=== PATIENT | female | born 1955 | race Caucasian/White ===

== ENCOUNTER 2016-09-15 12:28 | Day surgery (SDC) | payer OTHER ==
[2016-09-15 12:48] VITALS: TEMP 97.1; O2SAT 98
[2016-09-15] MEDS: TRIAMCINOLONE ACETONIDE 40 MG/ML SUS ONE ×2 (13:45→13:48)
[2016-09-15 14:00] VITALS: BP 121/56; PULSE 79; RESP 18
== END 2016-09-15 14:19 | disposition home or self-care (01) ==
LOC: SURG 12:28
PROVIDERS: ATTEND Nurse Anesthetist, Certified Registered
DX: M54.5 Low back pain (principal)
CPT/HCPCS: J3300

== ENCOUNTER 2016-10-30 12:08 | Emergency (ER) | payer OTHER ==
[2016-10-30 13:00] VITALS: TEMP 97.6
[2016-10-30] MEDS ORDERED: LORAZEPAM 0.5 MG TAB PO ONE (13:00)
[2016-10-30] MEDS ORDERED: LORAZEPAM 0.5 MG TAB ONE (13:01)
[2016-10-30 15:04] VITALS: RESP 16
[2016-10-30 15:06] VITALS: BP 135/79; PULSE 79; O2SAT 97
== END 2016-10-30 13:53 | disposition home or self-care (01) ==
LOC: ED 12:08
DX: F41.8 Other specified anxiety disorders (principal)
CPT/HCPCS: 99283

== ENCOUNTER 2016-11-24 11:33 | Day surgery (SDC) | payer OTHER ==
[2016-11-24] MEDS: TRIAMCINOLONE ACETONIDE 40 MG/ML SUS ONE ×2 (12:49→13:10)
[2016-11-24 13:24] VITALS: BP 156/69; PULSE 75; RESP 16; TEMP 97.6; O2SAT 100
== END 2016-11-24 13:40 | disposition home or self-care (01) ==
LOC: SURG 11:33
PROVIDERS: ATTEND Nurse Anesthetist, Certified Registered
DX: M54.5 Low back pain (principal)
CPT/HCPCS: 62323; 77003; J3300

== ENCOUNTER 2017-01-13 12:28 | Day surgery (SDC) | payer OTHER ==
[2017-01-13] MEDS ORDERED: BUPIVACAINE HCL 0.25% MPF 10 ML SOL INFIL ONE (13:26)
[2017-01-13] MEDS ORDERED: TRIAMCINOLONE ACETONIDE 40 MG/ML SUS ONE (13:26)
[2017-01-13 14:02] VITALS: BP 130/67; PULSE 69; RESP 18; TEMP 98; O2SAT 100
== END 2017-01-13 14:21 | disposition home or self-care (01) ==
LOC: SURG 12:28
PROVIDERS: ATTEND Nurse Anesthetist, Certified Registered
DX: M53.3 Sacrococcygeal disorders, not elsewhere classified (principal)
CPT/HCPCS: 27096; 77003; J3300; 82962

== ENCOUNTER 2017-02-18 13:20 | Day surgery (SDC) | payer OTHER ==
[2017-02-18] MEDS ORDERED: BUPIVACAINE HCL 0.25% MPF 10 ML SOL INFIL ONE (14:01)
[2017-02-18] MEDS ORDERED: LIDOCAINE HCL 1% MPF SOL ONE (14:12)
[2017-02-18] MEDS: TRIAMCINOLONE ACETONIDE 40 MG/ML SUS ONE ×2 (14:20→14:21)
[2017-02-18 14:49] VITALS: BP 148/86; PULSE 79; RESP 18; TEMP 97.4; O2SAT 100
== END 2017-02-18 15:17 | disposition home or self-care (01) ==
LOC: SURG 13:20
PROVIDERS: ATTEND Nurse Anesthetist, Certified Registered
DX: M12.9 Arthropathy, unspecified (principal)
CPT/HCPCS: J2001; J3300

== ENCOUNTER 2017-03-03 14:58 | Day surgery (SDC) | payer OTHER ==
[2017-02-18 14:49] VITALS: O2SAT 100
[2017-03-03] MEDS ORDERED: BUPIVACAINE HCL 0.25% MPF 10 ML SOL INFIL ONE (15:27)
[2017-03-03] MEDS: DEXAMETHASONE SOD PHOS PF 10 MG/ML SOL IJ ONE ×2 (15:44→15:49)
[2017-03-03 16:07] VITALS: BP 128/67; PULSE 69; RESP 20; TEMP 98.3
== END 2017-03-03 16:20 | disposition home or self-care (01) ==
LOC: SURG 14:58
PROVIDERS: ATTEND Nurse Anesthetist, Certified Registered
DX: M48.062 Spinal stenosis, lumbar region with neurogenic claudication (principal)
CPT/HCPCS: J1100